=== PATIENT | female | born 1950 | race Caucasian/White ===

== ENCOUNTER → 2021-08-14 | Outpatient (CLI) | payer MEDICARE | END | disposition home or self-care (01) | LOC: LABPAT 09:14 | PROVIDERS: ATTEND Orthopaedic Surgery | DX: Z22.322 Carrier or suspected carrier of Methicillin resistant Staphylococcus aureus (principal) | CPT/HCPCS: 87070 ==

== ENCOUNTER → 2021-08-18 | Outpatient (CLI) | payer MEDICARE ==
[2021-08-18 16:01] LABS: Basophils # (A) 0.1 k/uL (0-0.2); Basophils % (A) 1 %; Eosinophils # (A) 1.1 k/uL (0-0.7); Eosinophils % (A) 12 %; HCT 50.9 % (34.0-46.0); HGB 16.1 gm/dL (11.4-16.0); Lymphocytes # (A) 2.7 k/uL (1.0-4.8); Lymphocytes % (A) 30 %; MCH 30.6 pg (25.0-35.0); MCHC 31.6 g/dL (31.0-37.0); MCV 96.8 fL (80.0-100.0); Monocytes # (A) 0.6 k/uL (0-1.0); Monocytes % (A) 7 %; Neutrophils # (A) 4.1 k/uL (1.3-7.7); Neutrophils % (A) 47 %; Platelet Count 256 k/uL (150-450); RBC 5.26 m/uL (3.80-5.40); RDW 14.7 % (11.5-15.5); WBC 8.7 k/uL (3.8-10.6)
[2021-08-18 16:07] LABS: INR 0.9 (<1.2)
[2021-08-18 16:13] LABS: Potassium 4.5 mmol/L (3.5-5.1)
== END | disposition home or self-care (01) ==
LOC: LABPAT 15:32
PROVIDERS: ATTEND Orthopaedic Surgery
DX: Z01.812 Encounter for preprocedural laboratory examination (principal); M17.11 Unilateral primary osteoarthritis, right knee
CPT/HCPCS: 36415; 80051; 85025; 85610

== ENCOUNTER 2021-08-22 08:43 | Day surgery (SDC) | payer MEDICARE ==
[2021-08-18 11:12] VITALS: BMI 34.8
--- NOTE | 2021-08-21 11:58 | HP ---
HISTORY AND PHYSICAL CHIEF COMPLAINT: Right knee pain. HISTORY OF PRESENT ILLNESS: The patient is a 70-year-old retired female who presents with progressive right knee pain for the past year, worsening recently. She is having anterior and medial pain that increases with walking and stairs. She has swelling along with stiffness, locking and buckling. She has pain at night. She has tried medications in addition to an injection, without much relief. She has also worked on weight loss and home exercises for the past year. PAST MEDICAL HISTORY: Significant for type 2 diabetes and hypertension. PAST SURGICAL HISTORY: Significant for lumbar spine surgery, hysterectomy, cholecystectomy. CURRENT MEDICATIONS: Allopurinol, amlodipine, atenolol, levothyroxine, losartan, metformin. ALLERGIES: SHE DENIES DRUG ALLERGIES. FAMILY HISTORY: Significant for cancer. SOCIAL HISTORY: Negative for current tobacco or alcohol use. REVIEW OF SYSTEMS: Sixteen-point review of systems is otherwise reviewed and noncontributory. PHYSICAL EXAMINATION: On examination, the patient is approximately 5 feet 6 inches, 220 pounds of endomorphic habitus. HEENT exam is nonfocal. Neck is supple. She has painless passive motion of the right hip. Straight-leg raise is negative. Active motion of right knee minus 14 to 115 degrees of flexion. She has a large effusion. She is tender about the medial joint line. Collaterals are stable, Kristopher is negative. Drea's is equivocal. She has genu varum alignment. Her distal neurovascular exam appears intact in the right lower extremity. X-rays to include weightbearing notch, lateral and Merchant views of the right knee obtained in the office show severe medial compartment osteoarthrosis with [id number] changes and subchondral sclerosis. IMPRESSION: Right knee severe medial compartment osteoarthrosis. RECOMMENDATIONS: I talked to the patient at length regarding her condition along with treatment options. At this point she is having persistent significant pain and mechanical symptoms related to her osteoarthrosis despite previous conservative measures. After thorough discussion, she opted to proceed with surgery. We will plan to proceed with right total knee arthroplasty. We will institute DVT prophylaxis postoperatively. Risks and benefits were discussed at length in layman's terms. MMODL / IJN: [id number] /
[~2021-08-22 08:43] MED LIST: ACETAMINOPHEN TAB 500 MG TAB PO PRN; DEXAMETHASONE SOD PHOSPHATE 4 MG/ML 1 ML VIAL IV ONE; HYDROmorphone 0.5 MG/0.5 ML SYRINGE IVP PRN; MELOXICAM 7.5 MG TAB PO PRN; ONDANSETRON 4 MG/2 ML VIAL IVP ONE; TRANEXAMIC ACID 1,000 MG in SODIUM CHLORIDE 0.9% 100 ML IVPB PRN
[2021-08-22 09:24] LABS: Glucose,Whole Blood 98 mg/dL (75-99)
[2021-08-22] MEDS: LACTATED RINGERS 1,000 ML IV SCH ×2 (09:35→15:59)
[2021-08-22] MEDS ORDERED: MIDAZOLAM 2 MG/2 ML VIAL IVP ONE (10:01)
[2021-08-22] MEDS ORDERED: MIDAZOLAM 2 MG/2 ML VIAL ONE (10:28)
[2021-08-22] MEDS ORDERED: GLYCOPYRROLATE 0.2 MG/ML 2 ML VIAL ONE (10:28)
[2021-08-22] MEDS ORDERED: LIDOCAINE 1% INJ 10MG/ML (20 ML MDV) ONE (10:28)
[2021-08-22] MEDS ORDERED: fentaNYL (PF) 50 MCG/ML 2 ML AMP ONE (10:28)
[2021-08-22] MEDS ORDERED: TRANEXAMIC ACID 1,000 MG/10 ML VIAL ONE (10:28)
[2021-08-22] MEDS ORDERED: SUCCINYLCHOLINE CHLORIDE 100 MG/5 ML SYR IV ONE (10:28)
[2021-08-22] MEDS ORDERED: SODIUM CHLORIDE 0.9% 100 ML BAG ONE (10:28)
[2021-08-22] MEDS ORDERED: ROCURONIUM 10 MG/ML (5 ML VIAL) IV ONE (10:28)
[2021-08-22] MEDS ORDERED: HYDROmorphone (PF) 1 MG/ML ONE (10:28)
[2021-08-22] MEDS ORDERED: NEOSTIGMINE 1 MG/ML 10 ML VIAL ONE (10:28)
[2021-08-22] MEDS ORDERED: ROPIVACAINE 5 MG/ML 30 ML VIAL ONE (10:28)
[2021-08-22] MEDS ORDERED: PROPOFOL 10 MG/ML 20 ML VIAL IV ONE (10:28)
[2021-08-22] MEDS ORDERED: ceFAZolin 1,000 MG in SODIUM CHLORIDE 0.9% 1,000 ML IRRIGATION ONE (11:06)
[2021-08-22] MEDS ORDERED: LACTATED RINGERS 1,000 ML IV ONE (11:31)
[2021-08-22] MEDS ORDERED: HYDROcodone/APAP 5-325MG 1 EACH TAB PO PRN ×2 (12:12)
[2021-08-22] MEDS ORDERED: ONDANSETRON 4 MG/2 ML VIAL IVP PRN (12:12)
[2021-08-22] MEDS ORDERED: HYDROmorphone 0.5 MG/0.5 ML SYRINGE IVP PRN (12:12)
[2021-08-22] MEDS ORDERED: MAGNESIUM HYDROXIDE 2,400 MG/10 ML CUP PO PRN (12:12)
[2021-08-22] MEDS ORDERED: NALOXONE 0.4 MG/ML 1 ML VIAL IV PRN (12:12)
[2021-08-22] MEDS ORDERED: ACETAMINOPHEN TAB 325 MG TAB PO PRN (12:12)
--- NOTE | 2021-08-22 12:41 | P.OP ---
Date of Procedure: 08/22/21 Preoperative Diagnosis: Right knee severe tricompartmental osteoarthrosis Postoperative Diagnosis: Same Procedure(s) Performed: Right total knee arthroplastycementedcruciate retaining Implants: Depuy Attune millimeters articular surface, and 32 mm cemented patellar component. This is a cruciate retaining implant. Anesthesia: SALEEMA Surgeon: Nba Blount Splitting Machine Operator #1: Foster Dumont Estimated Blood Loss (ml): 50 Pathology: other (Bone fragments) Condition: stable Disposition: PACU Indications for Procedure: The patient is a 70-year-old female who presents with progressive right knee pain secondary to osteoarthrosis despite previous conservative measures. A discussion of the risks and benefits, development of blood clots, possible component loosening/failure and need for subsequent procedures were discussed. Informed consent was obtained. Operative Findings: As below Description of Procedure: The patient was brought to the operating room, and after induction of spinal anesthesia the right lower extremity was prepped and draped in a normal fashion. The tourniquet was inflated to 270 mmHg. A longitudinal incision extending 3 finger breaths above the superior pole of the patella extending to the medial aspect the tibial tubercle was then made. The skin and subcutaneous tissues were divided sharply. Electrocautery was used for hemostasis. A medial parapatellar arthrotomy was then performed. The medial soft tissues to include the superficial and deep portions of the medial collateral ligament as well as the medial hamstring tendons were elevated subperiosteally. The proximal medial tibia osteophytes were carefully removed. The patella was everted. The knee was flexed. A portion of the retropatellar fat pad was excised sharply. The anterior cruciate ligament was sacrificed. A starting hole was made in the distal femur 1 cm anterior to the posterior cruciate origin. An intramedullary femoral guide was gently inserted planning on 5 valgus distal cut with 9 mm distal resection. The cutting block was pinned in place. The distal cut was then made. The posterior referencing sizing guide was utilized. 3 of external rotation was built into the system and verified off the trans- epicondylar axis and the posterior condyles. I felt size 5 was most appropriate. The cutting block was pinned in place. The anterior, posterior, and chamfer cuts were then made. The bone fragments were removed. A sulcus cut was then made with the appropriate guide. The trial size 5 femoral component was then placed and was fully seated. There was good anterior to posterior and medial to lateral fit. The distal peg holes were then drilled. The trial component was then removed. Attention was then paid towards preparing the prox imal tibia. An extra medullary guide was utilized in line with the tibial shaft and second metatarsal distally. A 7 posterior slope was planned. I planned on 2 mm resection from the medial compartment. The cutting block was pinned in place. The proximal tibial cut was then made. The bone was removed in one fragment. The remnants of the medial and lateral menisci were excised the capsule junction with electrocautery. The tibia sized most appropriately at size 4. The posterior osteophytes off the distal femur were carefully removed with a curved osteotome. The trial tibial and femoral components were placed along with a 10 millimeters articular surface. I was able to obtain full flexion and extension with good stability with varus and valgus stress. After several flexion and extension cycles, the tibial rotation was marked with electrocautery in line with the medial one third of the tibial tubercle. Attention was then paid towards preparing the patella. A patella reamer was utilized taking this down to 14 mm of bone stock. A good flush cut was made. The patella sized most appropriately at 32 millimeters. The peg holes were then drilled. The trial component was placed. The knee was taken through a range of motion. I had good patellofemoral tracking with no hands technique. The trial components were then removed. The tibia was prepared in the appropriate ro tation with appropriate drill and keel punch. The flexion and extension gaps were checked and felt to be symmetric. The posterior soft tissues were injected with ropivacaine. The bony surfaces were prepared with pulsatile lavage and dried. The deep tibial component was then cemented in place and was fully seated. Excess cement was removed. The femoral component was cemented in place and was fully seated. Again excess cement was removed. The trial 10 millimeters surface was then inserted in the knee was put in full extension. The patella component was cemented in place. After the cement had sufficiently hardened, the knee was again taken through a range of motion. Again there was good stability in flexion and extension with varus and valgus stress. The trial articular surface was then removed. The final articular surface was placed and was impacted. Care was taken to avoid any soft tissue interposition. Pulsatile lavage was again utilized. The tourniquet was deflated with approximately 60 minutes total tourniquet time. There was minimal drainage therefore a deep drain was not placed. The medial parapatellar arthrotomy was then closed with #2 Ethibond suture. The subcutaneous tissues were reapproximated interrupted 2- 0 Vicryl sutures. The skin was reapproximated with 3-0 subarticular strata fix suture. Skin tape and adhesive was applied. A sterile dressing was applied. The patient was then awoken from sedation and transferred to recovery room in good condition. Blood loss was estimated at 50 milliliters. No complications were incurred. Sponge and needle counts were correct at the end the case. Reynaldo STOCK assisted during the major components this case to include exposure, bone resection, and implantation.
--- NOTE | 2021-08-22 13:11 | XR ---
EXAMINATION TYPE: XR knee limited RT DATE OF EXAM: 08/22/2021 CLINICAL HISTORY: Postoperative evaluation Two views of the right knee are submitted. Identified are changes of total knee arthroplasty with femoral and tibial components appearing well seated. Postsurgical soft tissue changes are noted. Alignment is anatomic.
[2021-08-22] MEDS ORDERED: hydrALAZINE HCL 20 MG/ML 1 ML VIAL ONE (13:37)
[2021-08-22] MEDS ORDERED: hydrALAZINE HCL 20 MG/ML 1 ML VIAL IV ONE (13:40)
[2021-08-22] MEDS ORDERED: ROPIVACAINE 0.2%-NS ON-Q PUMP 2 MG/ML EACH MISCELLANE ONE (15:00)
[2021-08-22 15:12] LABS: Glucose,Whole Blood 140 mg/dL (75-99)
--- NOTE | 2021-08-22 20:52 | P.CONS ---
History of Present Illness - History of Present Illness This is a pleasant 70 years old female with past medical history of Diabetes Mellitus, Hypertension, Rheumatoid Arthritis , Skin Disorder, hypothyroidism Patient is admitted for Severe right knee tricompartment osteoarthrosis status post right total knee arthroplasty. Today is postoperative day #0 Patient denies any symptoms and no chest pain or dyspnea. No abdominal pain or urinary complaints. No fever. Labs done on 08/18 showing WBC of 8.7, slightly high hemoglobin at 16.1 and hematocrit of 50 and normal platelets at 25K. Normal electrolytes with sodium 142, potassium 4.5, chloride 104, CO2 26 and glucose slightly up at 140. Runover is not detected Review of Systems CONSTITUTIONAL: No fever, no malaise, no fatigue. HEENT: No recent visual problems or hearing problems. Denied any sore throat. CARDIOVASCULAR: No orthopnea, PND, no palpitations, no syncope. PULMONARY: No shortness of breath, no cough, no hemoptysis. GASTROINTESTINAL: No diarrhea, no nausea, no vomiting, no abdominal pain. Normoactive bowel sounds. NEUROLOGICAL: No headaches, no weakness, no numbness. HEMATOLOGICAL: Denies any bleeding or petechiae. GENITOURINARY: Denies any burning micturition, frequency, or urgency. MUSCULOSKELETAL/RHEUMATOLOGICAL: Denies any joint pain, swelling, or any muscle pain. ENDOCRINE: Denies any polyuria or polydipsia. 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 History of Any Multi-Drug Resistant Organisms: None Reported Past Surgical History: Back Surgery, Cholecystectomy, Hysterectomy, Tonsillectomy Additional Past Surgical History / Comment(s): 2 disks removed from lower back, Past Anesthesia/Blood Transfusion Reactions: No Reported Reaction Past Psychological History: Depression Smoking Status: Former smoker Past Alcohol Use History: Occasional Additional Past Alcohol Use History / Comment(s): quit smoking 1999, started smoking age 13, < 1 PPD Past Drug Use History: None Reported - Past Family History Father Family Medical History: Cancer Medications and Allergies Home Medications Medication Instructions Recorded Confirmed Type Acetaminophen [Tylenol Arthritis] 1,300 mg PO HS 08/18/21 08/18/21 History Albuterol Sulfate [Ventolin HFA] 1 puff INHALATION Q6H PRN 08/18/21 08/18/21 History Allopurinol [Zyloprim] 300 mg PO QAM 08/18/21 08/18/21 History Atenolol [Tenormin] 50 mg PO HS 08/18/21 08/18/21 History Atenolol [Tenormin] 100 mg PO QAM 08/18/21 08/18/21 History Cholecalciferol [Vitamin D3 (25 50 mcg PO DAILY 08/18/21 08/18/21 History Mcg = 1000 Iu)] Cyanocobalamin (Vitamin B-12) 1,000 mcg PO DAILY 08/18/21 08/18/21 History [Vitamin B-12] Levothyroxine Sodium [Synthroid] 100 mcg PO QAM 08/18/21 08/18/21 History Melatonin 10 mg PO HS 08/18/21 08/18/21 History Venlafaxine HCl [Effexor XR] 150 mg PO DAILY 08/18/21 08/18/21 History amLODIPine BESYLATE 10 mg PO HS 08/18/21 08/18/21 History metFORMIN HCL [Glucophage] 1,000 mg PO BID 08/18/21 08/18/21 History Allergies Allergy/AdvReac Type Severity Reaction Status Date / Time No Known Allergies Allergy Verified 08/22/21 08:58 Physical Exam Vitals: Vital Signs Temp Pulse Resp BP Pulse Ox 08/22/21 15:00 60 16 129/63 96 08/22/21 14:30 56 L 16 139/77 96 08/22/21 14:15 60 16 127/64 96 08/22/21 14:00 58 L 16 130/64 100 08/22/21 13:45 60 14 140/70 100 08/22/21 13:30 60 14 174/91 100 08/22/21 13:15 61 14 178/92 97 08/22/21 13:00 64 14 169/98 97 08/22/21 12:42 97.5 F L 68 14 155/94 95 08/22/21 10:15 68 15 126/65 97 08/22/21 09:15 97.1 F L 64 15 144/76 97 Intake and Output 08/22/21 08/22/21 08/22/21 06:59 14:59 22:59 Intake Total 1751 Output Total 50 Balance 1701 Intake: IV 1751 Output: Estimated Blood Loss 50 Other: Weight 97 kg 97 kg GENERAL: The patient is alert and oriented x3, not in any acute distress. Well developed, well nourished. HEENT: Pupils are round and equally reacting to light. EOMI. No scleral icterus. No conjunctival pallor. Normocephalic, atraumatic. No pharyngeal erythema. No thyromegaly. CARDIOVASCULAR: S1 and S2 present. No murmurs, rubs, or gallops. PULMONARY: Chest is clear to auscultation, no wheezing or crackles. ABDOMEN: Soft, nontender, nondistended, normoactive bowel sounds. No palpable organomegaly. -MUSCULOSKELETAL: No joint swelling or deformity. Right knee surgical wound in a dressing, rest of the exam deferred to surgery team EXTREMITIES: No cyanosis, clubbing, or pedal edema. NEUROLOGICAL: Gross neurological examination did not reveal any focal deficits. SKIN: No rashes. No petechiae Results Labs: Abnormal Lab Results - Last 24 Hours (Table) 08/22/21 Range/Units 15:11 POC Glucose (mg/dL) 140 H (75-99) mg/dL Assessment and Plan Assessment: Severe right knee tricompartment osteoarthrosis status post right total knee arthroplasty. Diabetes mellitus Hypertension Hypothyroidism History of rheumatoid arthritis, not an active issue Plan: This is a pleasant 70 years old female who presents with right knee arthroplasty Labs and medication were reviewed.. Continue same treatment. Continue with symptomatic treatment. Resume home medication. Monitor lytes and vitals. DVT and GI prophylaxis. Further recommendationsas per clinical course of the patient DVT prophylaxis and pain management per primary team We recommend patient follow up with PCP in one week after discharge and she was instructed with the same Thank you for consulting us, we will follow up with the
[2021-08-22] MEDS ORDERED: ACETAMINOPHEN TAB 325 MG TAB PO SCH (21:00)
[2021-08-22] MEDS ORDERED: atenoloL 50 MG TAB PO SCH (21:00)
[2021-08-22] MEDS ORDERED: ALBUTEROL NEBULIZED 2.5 MG/3 ML INHALATION PRN (21:00)
[2021-08-22] MEDS ORDERED: MELATONIN 5 MG TABLET PO PRN (21:00)
[2021-08-22] MEDS ORDERED: SENNOSIDES-DOCUSATE SODIUM 1 EACH TAB PO SCH (21:00)
[2021-08-22 21:10] LABS: Glucose,Whole Blood 137 mg/dL (75-99)
[2021-08-22] MEDS: INSULIN ASPART (NovoLOG) 100 UNIT/ML VIAL SQ SCH (21:20)
[2021-08-23] MEDS ORDERED: LEVOTHYROXINE 100 MCG TAB PO SCH (06:30)
--- NOTE | 2021-08-23 07:10 | P.PN ---
Progress Note - Text Progress Note Date: 08/23/21 Postoperative day # 1 status post total knee arthroplast, and adductor canal catheter placed for postoperative analgesia, currently at ropivacaine 0.2% 8 mL per hour and continuous infusion, visual analogue scale is 3/10, patient using oral pain medication for breakthrough pain. Assessment and plan= Acute postoperative pain, adductor canal catheter for pain control, pain is well controlled we'll continue the same management.
[2021-08-23 07:15] LABS: Glucose,Whole Blood 115 mg/dL (75-99)
[2021-08-23] MEDS: INSULIN ASPART (NovoLOG) 100 UNIT/ML VIAL SQ SCH ×2 (07:42→12:04)
[2021-08-23 08:07] VITALS: BP 177/79; PULSE 62; RESP 16; TEMP 99
[2021-08-23] MEDS ORDERED: CHOLECALCIFEROL 25 MCG (1000 IU) TABLET PO SCH (09:00)
[2021-08-23] MEDS ORDERED: atenoloL 50 MG TAB PO SCH (09:00)
[2021-08-23] MEDS ORDERED: VENLAFAXINE HCL ER 150 MG CAP PO SCH (09:00)
[2021-08-23] MEDS ORDERED: RIVAROXABAN 10 MG TAB PO SCH (09:00)
[2021-08-23] MEDS ORDERED: allopurinoL 300 MG TAB PO SCH (09:00)
[2021-08-23] MEDS ORDERED: CYANOCOBALAMIN 500 MCG TAB PO SCH (09:00)
[2021-08-23 09:40] LABS: Basophils # (A) 0.03 X 10*3/uL (0.00-0.10); Basophils % (A) 0.3 %; Eosinophils # (A) 0.01 X 10*3/uL (0.04-0.35); Eosinophils % (A) 0.1 %; HGB 12.9 g/dL (12.0-15.0); Lymphocytes # (A) 2.24 X 10*3/uL (0.90-5.00); Lymphocytes % (A) 25.5 %; MCH 31.8 pg (27.0-32.0); MCHC 33.1 g/dL (32.0-37.0); MCV 96.1 fL (80.0-97.0); Monocytes # (A) 1.21 X 10*3/uL (0.20-1.00); Monocytes % (A) 13.8 %; Neutrophils # (A) 5.27 X 10*3/uL (1.80-7.70); Neutrophils % (A) 60.1 %; Platelet Count 245 X 10*3/uL (140-440); RBC 4.06 X 10*6/uL (4.10-5.20); RDW 14.9 % (11.5-14.5); WBC 8.78 X 10*3/uL (4.50-10.00)
--- NOTE | 2021-08-23 10:31 | P.PN ---
Subjective Progress Note Date: 08/23/21 Principal diagnosis: Status post right total knee arthroplasty Patient was examined today at bedside, she is resting comfortably in her hospital bed. She was waiting for physical therapy come by to ambulate. She's been up to the bathroom a few different occasions, she's doing well with that. She was having some slight increase in pain today, the pain medications seem to be helping. Patient denies any headaches, lightheadedness, chest pain or shortness of breath. Objective - Vital Signs Vital signs: Vital Signs Temp 99.0 F 08/23/21 07:00 Pulse 62 08/23/21 08:00 Resp 16 08/23/21 08:00 BP 177/79 08/23/21 07:00 Pulse Ox 92 L 08/23/21 07:00 Intake & Output 08/22/21 08/23/21 08/23/21 18:59 06:59 18:59 Intake Total 1751 Output Total 50 Balance 1701 Weight 97 kg Intake: IV 1751 Output: Estimated Blood Loss 50 Other: Voiding Method Toilet Toilet # Voids 0 1 - Exam Right lower extremity: Incision is clean, dry, and intact. The exofin fusion tape is in good condition. There is minimal soft tissue swelling and ecchymosis surrounding the medial and lateral aspects of the incision. Calf is soft, no tenderness with palpation. Plantar flexion, dorsiflexion, EHL, FHL are intact. Sensory exam to light touch throughout the extremity is intact, dorsal pedis pulses 2+. - Labs CBC & Chem 7: 08/23/21 05:38 Labs: Abnormal Lab Results - Last 24 Hours (Table) 08/22/21 08/22/21 08/23/21 Range/Units 15:11 21:05 05:38 RBC 4.06 L (4.10-5.20) X 10*6/uL RDW 14.9 H (11.5-14.5) % Monocytes # 1.21 H (0.20-1.00) X 10*3/uL Eosinophils # 0.01 L (0.04-0.35) X 10*3/uL POC Glucose (mg/dL) 140 H 137 H (75-99) mg/dL 08/23/21 Range/Units 07:03 RBC (4.10-5.20) X 10*6/uL RDW (11.5-14.5) % Monocytes # (0.20-1.00) X 10*3/uL Eosinophils # (0.04-0.35) X 10*3/uL POC Glucose (mg/dL) 115 H (75-99) mg/dL Assessment and Plan Assessment: Postoperative day #1 status post right total knee arthroplasty Plan: Pain control, continue with current oral medication DVT prophylaxis, Eliquis 2.5 mg twice a day for 2 weeks discharge Wound care instructions were discussed with patient, this including icing and elevating along with showering instructions Encourage incentive spirometer Home health care after discharge Medical recommendations Discharge planning: Plan for discharge home today Time with Patient: Less than 30
--- NOTE | 2021-08-23 10:35 | P.DS ---
Providers Date of admission: 08/22/2021 Expected date of discharge: 08/23/21 Attending physician: Nba Blount Consults: 08/22/21 12:12 Consult Physician Routine Consulting Provider: Christiano Britt Consult Reason/Comments: medical management Do you want consulting provider notified?: Yes Primary care physician: [facility] Course: Date of admission: 08/22/2021 Date of discharge: 08/23/2021 Admission diagnosis: Status post right total knee arthroplasty Discharge diagnosis: Same Attending physician: Dr. Blount Surgical procedures: Right total knee arthroplasty Brief history: Patient is a 70-year-old female with a history of progressive primary right knee osteoarthritis. At this point patient has failed conservative treatment measures and has opted to proceed with a elective right total knee arthroplasty. Hospital course: Details of patient's surgery can be found in operative report. Patient tolerated the procedure well and was subsequently transported to orthopedic floor. Patient's orthopeidc and medical care was provided daily. Patient had daily laboratory tests performed for evaluation of overall blood counts. Patient had daily physical therapy to include strengthening range of motion as well as education with walker ambulation. Patient was treated with Xarelto for their postoperative DVT prophylaxis during their inpatient stay. Patient was noted to have a relatively uneventful postoperative course. Patient reported satisfactory pain control with oral pain medications by postoperative day 0. Patient showed satisfactory progress with physical therapy. Patient moved steadily through the program and had no difficulty meeting the goals by postoperative day 1. Given patient's otherwise satisfactory course and having met physical therapy goals, plan is to discharge patient home on postoperative day 1. Discharge condition/disposition: Patient will be discharged home in stable condition. Discharge medications: Instructions are given on resumption of patient's normal daily medications per primary care recommendation, in addition patient will be prescribed [place] 5 mg/325 mg, Colace 100 mg, Eliquis 2.5 mg. Discharge instructions: 1. Wound care and infection precautions, keep incision dry and covered while showering, no lotions, creams, moisturizers. No soaking, tubs, pools, hottubs. Do not scrub over the incision. 2. Weight-bear as tolerated with walker / cane until follow-up. 3. Ice and elevate when necessary. Do not exceed 20 minutes per hour with ice pack. 4. Utilize compression sleeve until seen at first follow up appointment. 5. Visiting nursing care. 6. Home physical therapy including home CPM. 7. Pain meds and anticoagulants per prescription. 8. Pain medication has potential to cause constipation. Increase oral fluid and fiber intake. Contact primary care provider if you have not had a bowel movement within 48 hours after discharge 9. No anti-inflammatory medication until discussed at first post operative visit, this including Motrin, Aleve, Mobic, Diclofenac. 10. Follow up in office at 2 weeks postop with Reynaldo Dumont PA-C/Sagar Marie 11. Follow up with your primary care doctor 7-10 days after discharge. 12. Contact [facility] with any questions, . Procedures: Right total knee arthroplasty Patient Condition at Discharge: Good Plan - Discharge Summary Discharge Rx Participant: Yes New Discharge Prescriptions: New Docusate [Colace] 100 mg PO DAILY #30 cap Apixaban [Eliquis] 2.5 mg PO BID #60 tab HYDROcodone/APAP 5-325MG [F[place] 5-325] 1 - 2 tab PO Q6HR PRN #42 tab PRN Reason: Pain No Action Melatonin 10 mg PO HS Cholecalciferol [Vitamin D3 (25 Mcg = 1000 Iu)] 50 mcg PO DAILY Atenolol [Tenormin] 100 mg PO QAM metFORMIN HCL [Glucophage] 1,000 mg PO BID amLODIPine BESYLATE 10 mg PO HS Allopurinol [Zyloprim] 300 mg PO QAM Acetaminophen [Tylenol Arthritis] 1,300 mg PO HS Albuterol Sulfate [Ventolin HFA] 1 puff INHALATION Q6H PRN PRN Reason: Shortness Of Breath Cyanocobalamin (Vitamin B-12) [Vitamin B-12] 1,000 mcg PO DAILY Venlafaxine HCl [Effexor XR] 150 mg PO DAILY Atenolol [Tenormin] 50 mg PO HS Levothyroxine Sodium [Synthroid] 100 mcg PO QAM Discharge Medication List Acetaminophen [Tylenol Arthritis] 1,300 mg PO HS 08/18/21 [History] Albuterol Sulfate [Ventolin HFA] 1 puff INHALATION Q6H PRN 08/18/21 [History] Allopurinol [Zyloprim] 300 mg PO QAM 08/18/21 [History] Atenolol [Tenormin] 50 mg PO HS 08/18/21 [History] Atenolol [Tenormin] 100 mg PO QAM 08/18/21 [History] Cholecalciferol [Vitamin D3 (25 Mcg = 1000 Iu)] 50 mcg PO DAILY 08/18/21 [History] Cyanocobalamin (Vitamin B-12) [Vitamin B-12] 1,000 mcg PO DAILY 08/18/21 [History] Levothyroxine Sodium [Synthroid] 100 mcg PO QAM 08/18/21 [History] Melatonin 10 mg PO HS 08/18/21 [History] Venlafaxine HCl [Effexor XR] 150 mg PO DAILY 08/18/21 [History] amLODIPine BESYLATE 10 mg PO HS 08/18/21 [History] metFORMIN HCL [Glucophage] 1,000 mg PO BID 08/18/21 [History] Apixaban [Eliquis] 2.5 mg PO BID #60 tab 08/23/21 [Rx] Docusate [Colace] 100 mg PO DAILY #30 cap 08/23/21 [Rx] HYDROcodone/APAP 5-325MG [[place] 5-325] 1 - 2 tab PO Q6HR PRN #42 tab 08/23/21 [Rx] Follow up Appointment(s)/Referral(s): Sagar Vidal, PAC [PHYSICIAN DISPOSITION CLERK] - 09/07/21 [facility],Equipment [NON-STAFF] - (Please call [facility] once home to a rrange delivery of the Continuous Passive Motion (CPM) machine. ) [facility], [NON-STAFF] - ([facility] will call you to arrange your first visit. Please call them with any questions regarding your home care. ) Activity/Diet/Wound Care/Special Instructions: Orthopedic Discharge Instructions: 1. Wound care and infection precautions, keep incision dry and covered while showering, no lotions, creams, moisturizers. No soaking, pools, hot tubs. Do not scrub over incision. 2. Weight-bear as tolerated with walker / cane until follow-up. 3. Ice and elevate when necessary. Do not exceed 20 minutes per hour with ice pack. 4. Utilize compression sleeve until seen at first follow up appointment. 5. Pain meds and anticoagulants per prescription. 6. Pain medication has potential to cause constipation. Increase oral fluid and fiber intake. Contact primary care provider if you have not had a bowel movement within 48 hours after discharge. 7. No anti-inflammatory medication until discussed at first post operative visit, this including Motrin, Aleve, Mobic, Diclofenac. 8. Follow up in office at 2 weeks postop with Reynaldo Dumont PA-C/Sagar Vidal PA-C 9. Follow up with your primary care doctor 7-10 days after discharge. 10. Contact [facility] with any questions, . Discharge Disposition: HOME WITH HOME HEALTH SERVICES
[2021-08-23 11:34] LABS: Glucose,Whole Blood 124 mg/dL (75-99)
--- NOTE | 2021-08-23 12:47 | P.PN ---
Subjective This is a pleasant 70 years old female with past medical history of Diabetes Mellitus, Hypertension, Rheumatoid Arthritis , Skin Disorder, hypothyroidism Patient is admitted for Severe right knee tricompartment osteoarthrosis status post right total knee arthroplasty. Today is postoperative day #0 Patient denies any symptoms and no chest pain or dyspnea. No abdominal pain or urinary complaints. No fever. Labs done on 08/18 showing WBC of 8.7, slightly high hemoglobin at 16.1 and hematocrit of 50 and normal platelets at 25K. Normal electrolytes with sodium 142, potassium 4.5, chloride 104, CO2 26 and glucose slightly up at 140. Runover is not detected 08/23/2021 Patient remains asymptomatic today with no chest pain or dyspnea, no abdominal pain or nausea vomiting. She does not have bowel movement yet but she is passing gases. She feels that she is going to have bowel movements on. Her pain is controlled and she thinks she back to her own self. Patient looks medically stable Her blood pressure is slightly elevated and her antihypertensive including atenolol and Norvasc has been restarted CBC is unremarkable Glucose here in the hospital is on the low normal side and 215-124, she takes metformin 1000 mg twice a day at home, metformin hasn't been started yet. Patient instructed On discharge to check her glucose 4 times a day before each meal and at bedtime, see discharge instructions, also she says that her diet at home varus than dietary in the hospital, recommend that she cut down on her metformin 500 twice a day and keep monitoring her glucose closely, patient verbalized understanding and acceptance Objective - Vital Signs Vital signs: Vital Signs Temp 99.0 F 08/23/21 07:00 Pulse 62 08/23/21 08:00 Resp 16 08/23/21 08:00 BP 177/79 08/23/21 07:00 Pulse Ox 92 L 08/23/21 07:00 Intake & Output 08/22/21 08/23/21 08/23/21 18:59 06:59 18:59 Intake Total 1751 Output Total 50 Balance 1701 Weight 97 kg Intake: IV 1751 Output: Estimated Blood Loss 50 Other: Voiding Method Toilet Toilet # Voids 0 1 - Exam GENERAL: The patient is alert and oriented x3, not in any acute distress. Well developed, well nourished. HEENT: Pupils are round and equally reacting to light. EOMI. No scleral icterus. No conjunctival pallor. Normocephalic, atraumatic. No pharyngeal erythema. No thyromegaly. CARDIOVASCULAR: S1 and S2 present. No murmurs, rubs, or gallops. PULMONARY: Chest is clear to auscultation, no wheezing or crackles. ABDOMEN: Soft, nontender, nondistended, normoactive bowel sounds. No palpable organomegaly. -MUSCULOSKELETAL: No joint swelling or deformity. Right knee surgical wound in a dressing, rest of the exam deferred to surgery team EXTREMITIES: No cyanosis, clubbing, or pedal edema. NEUROLOGICAL: Gross neurological examination did not reveal any focal deficits. SKIN: No rashes. No petechiae - Labs CBC & Chem 7: 08/23/21 05:38 Labs: Abnormal Lab Results - Last 24 Hours (Table) 08/22/21 08/22/21 08/23/21 Range/Units 15:11 21:05 05:38 RBC 4.06 L (4.10-5.20) X 10*6/uL RDW 14.9 H (11.5-14.5) % Monocytes # 1.21 H (0.20-1.00) X 10*3/uL Eosinophils # 0.01 L (0.04-0.35) X 10*3/uL POC Glucose (mg/dL) 140 H 137 H (75-99) mg/dL 08/23/21 08/23/21 Range/Units 07:03 11:27 RBC (4.10-5.20) X 10*6/uL RDW (11.5-14.5) % Monocytes # (0.20-1.00) X 10*3/uL Eosinophils # (0.04-0.35) X 10*3/uL POC Glucose (mg/dL) 115 H 124 H (75-99) mg/dL Assessment and Plan Assessment: Severe right knee tricompartment osteoarthrosis status post right total knee arthroplasty. Diabetes mellitus Hypertension Hypothyroidism History of rheumatoid arthritis, not an active issue Plan: This is a pleasant 70 years old female who presents with right knee arthroplasty Resume her antihypertensive and monitor her blood pressure Keep monitoring glucose level Labs and medication were reviewed.. Continue same treatment. Continue with symptomatic treatment. Resume home medication. Monitor lytes and vitals. DVT and GI prophylaxis. Further recommendationsas per clinical course of the patient DVT prophylaxis and pain management per primary team We recommend patient follow up with PCP in one week after discharge and she was instructed with the same Thank you for consulting us, we will follow up with the Discussed with staff
--- NOTE | 2021-08-23 13:22 | P.ANPRN ---
Procedure Note - Anesthesia - Nerve Block Performed Right Adductor Canal Infusion Time Out Performed: Yes Date of Procedure: 08/22/21 Procedure Start Time: 10:00 Procedure Stop Time: 10:11 Location of Patient: PreOp Indication: Acute Post-Operative Pain, Requested by Surgeon Sedation Type: Sedate with meaningful contact maintained Preparation: Sterile Prep, Sterile Dressing Position: Supine Catheter: Indwelling Needle Types: Pajunk Needle Gauge: 21 Ultrasound used to visualize needle placement: Yes Ultrasound used to observe medication spread: Yes Blood Aspirated: No Pain Paresthesia on Injection Noted: No Resistance on Injection: Normal Image Stored and Saved: Yes Events: Uneventful and Well Tolerated (ropi .5% 20cc)
--- NOTE | 2021-08-23 13:23 | P.ANPRN ---
Procedure Note - Anesthesia - Nerve Block Performed Right Margaretck Single Time Out Performed: Yes Date of Procedure: 08/22/21 Procedure Start Time: 10:12 Procedure Stop Time: 10:15 Location of Patient: PreOp Indication: Acute Post-Operative Pain, Requested by Surgeon Sedation Type: Sedate with meaningful contact maintained Preparation: Sterile Prep Position: Supine Needle Types: Pajunk Needle Gauge: 21 Ultrasound used to visualize needle placement: Yes Ultrasound used to observe medication spread: Yes Blood Aspirated: No Pain Paresthesia on Injection Noted: No Resistance on Injection: Normal Image Stored and Saved: Yes Events: Uneventful and Well Tolerated (ropi .5% 25cc plus dexamethasone 4mg)
[2021-08-23] MEDS ORDERED: amLODIPine 10 MG TAB PO SCH (21:00)
== END 2021-08-23 12:40 | disposition home health service (06) ==
LOC: OR 08:43 → 4SSUR 12:05 → OR 08-23 12:40
PROVIDERS: ATTEND Orthopaedic Surgery
DX: M17.11 Unilateral primary osteoarthritis, right knee (principal); E03.9 Hypothyroidism, unspecified; E11.9 Type 2 diabetes mellitus without complications; I10 Essential (primary) hypertension; M06.9 Rheumatoid arthritis, unspecified; Z79.01 Long term (current) use of anticoagulants; Z79.84 Long term (current) use of oral hypoglycemic drugs; Z87.891 Personal history of nicotine dependence; Z90.49 Acquired absence of other specified parts of digestive tract; Z96.651 Presence of right artificial knee joint
CPT/HCPCS: 20610; 97161; 64999; 64448; 76942; 85025; 88300; 87635; 73560; C1713 ×2; C1776; J2250; J0360; J1100; J0690 ×3; J2405; J1170 ×2; J2795

== ENCOUNTER 2022-06-29 06:43 | Day surgery (SDC) | payer MEDICARE ==
[2022-06-29 07:30] LABS: Glucose,Whole Blood 91 mg/dL (70-110)
[2022-06-29 07:38] VITALS: RESP 16; TEMP 98
[2022-06-29] MEDS: LACTATED RINGERS 1,000 ML IV SCH ×2 (07:38→08:04)
[2022-06-29] MEDS ORDERED: PROPOFOL 10 MG/ML 20 ML VIAL IV ONE (08:05)
--- NOTE | 2022-06-29 08:21 | P.PCN ---
Date of Procedure: 06/29/22 Procedure(s) Performed: BRIEF HISTORY: Patient is a 71-year-old pleasant white female scheduled for an elective colonoscopy as a part of evaluation of prior history of colon polyps. Her last colonoscopy was 5 years ago. PROCEDURE PERFORMED: Colonoscopy. PREOPERATIVE DIAGNOSIS: History of colon polyps. IV sedation per Anesthesia. PROCEDURE: After informed consent was obtained, the patient, was brought into the endoscopy unit. IV sedation was administered by Anesthesia under continuous monitoring. Digital rectal examination was normal. Initially the Olympus CF-160 flexible video colonoscope was then inserted in the rectum, gradually advanced into the cecum without any difficulty. Careful examination was performed as the scope was gradually being withdrawn. Ileocecal valve and the appendiceal orifice were visualized and appeared normal. Prep was excellent. Mucosa of the cecum, ascending colon, transverse colon, descending colon, sigmoid colon, and rectum appeared normal. Retroflexion was performed in the rectum and no lesions were seen. Scattered sigmoid diverticulosis seen. The patient tolerated the procedure well. IMPRESSION: Normal-appearing colon from rectum to cecum with no evidence of colorectal neoplasia. Scattered sigmoid diverticulosis. RECOMMENDATIONS: Findings of this examination were discussed with the patient as well as a family. She was advised to have a repeat colonoscopy in 5 years from now because of the prior history of colon polyps..
[2022-06-29] MEDS ORDERED: IV FLUID CONTINUATION 700 ML IV ONE (08:23)
[2022-06-29 08:56] VITALS: BP 138/65; PULSE 52
== END 2022-06-29 09:19 | disposition home or self-care (01) ==
LOC: ORWHC2ENDO 06:43
PROVIDERS: ATTEND Internal Medicine Gastroenterology
DX: Z12.11 Encounter for screening for malignant neoplasm of colon (principal); K57.30 Diverticulosis of large intestine without perforation or abscess without bleeding; Z86.010 Personal history of colon polyps; I10 Essential (primary) hypertension; J45.909 Unspecified asthma, uncomplicated; M06.9 Rheumatoid arthritis, unspecified; E07.9 Disorder of thyroid, unspecified; K21.9 Gastro-esophageal reflux disease without esophagitis; Z97.2 Presence of dental prosthetic device (complete) (partial); Z79.84 Long term (current) use of oral hypoglycemic drugs; Z79.890 Hormone replacement therapy; Z79.899 Other long term (current) drug therapy
CPT/HCPCS: J2704; G0105; 45378